=== PATIENT | female | born 1990 | race American Indian/Alaskan Native ===

== ENCOUNTER 2019-07-23 01:24 | Emergency (ER) | payer MEDICAID ==
[2019-07-23 01:55] LABS: Basophils # (Auto) 0.1 K/mm3 (0.0-0.1); Basophils % (Auto) 0.5 % (0.0-1.8); Eosinophils # (Auto) 0.1 K/mm3 (0.0-0.4); Eosinophils % (Auto) 0.8 % (0.0-4.3); Hematocrit 34.6 % (30.3-42.9); Hemoglobin 11.6 gm/dl (10.1-14.3); Lymphocytes # (Auto) 2.5 K/mm3 (1.2-5.4); Lymphocytes % (Auto) 23.5 % (13.4-35.0); Mean Corpuscular HGB Conc 34 % (30-34); Mean Corpuscular Volume 89 fl (79-97); Monocytes # (Auto) 0.8 K/mm3 (0.0-0.8); Monocytes % (Auto) 7.1 % (0.0-7.3); Platelet Count 316 K/mm3 (140-440); Red Cell Distribution Width 13.3 % (13.2-15.2)
[2019-07-23] MEDS ORDERED: ONDANSETRON 4 MG/2 ML INJ IV ONE (02:03)
[2019-07-23] MEDS ORDERED: ACETAMINOPHEN 500 MG TAB PO ONE (02:03)
[2019-07-23] MEDS ORDERED: FAMOTIDINE 20 MG/2 ML INJ IV ONE (02:03)
[2019-07-23 02:11] LABS: Alanine Aminotransferase 24 units/L (7-56); Albumin 3.7 g/dL (3.9-5); BUN/Creatinine Ratio 13; Blood Urea Nitrogen 9 mg/dL (7-17); Calcium 8.8 mg/dL (8.4-10.2); Hemolysis Index 3
[2019-07-23 03:06] LABS: Bacteria,Urine 2+ /HPF (Negative); Bilirubin,Urine NEG (Negative); Blood,Urine NEG (Negative); Color,Urine Yellow (Yellow); Hyaline Casts,Urine 1 /LPF; Mucus,Urine 2+ /HPF
--- NOTE | 2019-07-23 03:23 | Ultrasound Report ---
US OB <= 14 weeks fetus INDICATION / CLINICAL INFORMATION: Abdominal pain - 12 weeks gestation. COMPARISON: None available. FINDINGS: Uterus measures 14 cm. There is a 2.5 cm uterine fibroid. A single viable intrauterine gestation is demonstrated with heart rate 166 bpm. The crown-rump length is 3.8 cm corresponding to a 10 week 5 day gestation. The ovaries are normal. IMPRESSION: 1. Single viable 10 week 5 day intrauterine gestation. Signer Name: Maroln Caballero MD Signed: 07/23/2019 3:19 AM Workstation Name: [email or web address]
--- NOTE | 2019-07-23 03:39 | Emergency Department Report ---
ED Female HPI - General Chief complaint: Abdominal Pain Stated complaint: 11WEEKS PREG,ABDOMINAL PAIN Source: patient Mode of arrival: Ambulatory Limitations: No Limitations - History of Present Illness Initial comments: Patient is a A1 28-year-old -[place] female with no past medical history and who is approximately 10 weeks gestation and who presented to the ED with complaint of acute onset persistent suprapubic pain that radiates to the left lower quadrant area for the last 6 hours, worse in the last 2 hours with persistent nausea and vomiting for the last 2 weeks. Patient denies vaginal bleeding, vaginal discharge, dysuria, urinary frequency and urgency, fever, chills, cough, chest pain or shortness of breath, diarrhea, nausea and vomiting or low back pain and heavy lifting and fall. MD Complaint: pelvic pain -: Sudden, hour(s) (6) Location: suprapubic, LLQ Radiation: non-radiating Severity: severe Severity scale (0 -10): 7 Quality: cramping, sharp Consistency: constant Improves with: none Worsens with: none Are you Now?: Yes (10 weeka gestation) Associated Symptoms: denies other symptoms, abdominal pain. denies: vaginal discharge, vaginal bleeding, nausea/vomiting, fever/chills, headaches, loss of appetite, dysuria, hematuria, rash, seizure, shortness of breath, syncope, weakness - Related Data Sexually active: No : 3 Para: 1 A: 1 Previous Rx's Medication Instructions Recorded Last Taken Type Acetaminophen [Mapap] 500 mg PO Q6H PRN #30 tablet 07/23/19 Unknown Rx Promethazine [Phenergan] 25 mg PO Q6HR PRN #30 tab 07/23/19 Unknown Rx Allergies Allergy/AdvReac Type Severity Reaction Status Date / Time No Known Allergies Allergy Unverified 07/23/19 01:28 ED Review of Systems ROS: Stated complaint: 11WEEKS PREG,ABDOMINAL PAIN Other details as noted in HPI Constitutional: denies: chills, fever Eyes: denies: eye pain, eye discharge, vision change ENT: denies: ear pain, throat pain Respiratory: denies: cough, shortness of breath, wheezing Cardiovascular: denies: chest pain, palpitations Endocrine: no symptoms reported Gastrointestinal: abdominal pain (Left lower quadrant and suprapubic pain), nausea, vomiting. denies: diarrhea Genitourinary: denies: urgency, dysuria, frequency, hematuria, discharge, abnormal menses, dyspareunia Musculoskeletal: denies: back pain, joint swelling, arthralgia Skin: denies: rash, lesions Neurological: denies: headache, weakness, paresthesias Psychiatric: denies: anxiety, depression Hematological/Lymphatic: denies: easy bleeding, easy bruising ED Past Medical Hx - Past Medical History Previous Medical History?: No - Surgical History Past Surgical History?: Yes Additional Surgical History: - Social History Smoking Status: Never Smoker Substance Use Type: None - Medications Home Medications: Home Medications Medication Instructions Recorded Confirmed Last Taken Type Acetaminophen [Mapap] 500 mg PO Q6H PRN #30 tablet 07/23/19 Unknown Rx Promethazine [Phenergan] 25 mg PO Q6HR PRN #30 tab 07/23/19 Unknown Rx ED Physical Exam - General Limitations: No Limitations General appearance: alert, in no apparent distress - Head Head exam: Present: atraumatic, normocephalic, normal inspection - Eye Eye exam: Present: normal appearance, PERRL, EOMI. Absent: scleral icterus, conjunctival injection, nystagmus, periorbital swelling, periorbital tenderness Pupils: Present: normal accommodation - ENT ENT exam: Present: normal exam, normal orophraynx, mucous membranes moist, TM's normal bilaterally, normal external ear exam - Neck Neck exam: Present: normal inspection, full ROM - Respiratory Respiratory exam: Present: normal lung sounds bilaterally. Absent: respiratory distress, wheezes, rales, rhonchi, chest wall tenderness, accessory muscle use, prolonged expiratory - Cardiovascular Cardiovascular Exam: Present: regular rate, normal rhythm, normal heart sounds. Absent: systolic murmur, diastolic murmur, rubs, gallop - GI/Abdominal GI/Abdominal exam: Present: soft, tenderness (Palpable moderate left lower quadrant tenderness, no guarding or rebound), normal bowel sounds. Absent: guarding, rebound, hyperactive bowel sounds, hypoactive bowel sounds, mass - Bi-manual exam: Present: other (Pelvic exam deferred) - Extremities Exam Extremities exam: Present: normal inspection, full ROM, normal capillary refill - Back Exam Back exam: Present: normal inspection, full ROM. Absent: tenderness, CVA tenderness (R), CVA tenderness (L), paraspinal tenderness, vertebral tenderness - Neurological Exam Neurological exam: Present: alert, oriented X3, CN II-XII intact, normal gait, reflexes normal - Psychiatric Psychiatric exam: Present: normal affect, normal mood - Skin Skin exam: Present: warm, dry, intact, normal color. Absent: rash ED Course Vital Signs 07/23/19 07/23/19 01:25 02:14 Temperature 98.5 F Pulse Rate 73 Respiratory 18 18 Rate Blood Pressure 118/68 O2 Sat by Pulse 100 Oximetry ED Medical Decision Making - Lab Data Result diagrams: 07/23/19 01:37 07/23/19 01:37 - Radiology Data Radiology results: report reviewed, image reviewed Findings [facility] [address] [place] [address] Ultrasound Report Signed Patient: CITLALY ELIZABETH MR#: [id number] 2 : 1990 Acct:[id number] Age/Sex: 28 / F ADM Date: 07/23/19 Loc: ED Attending Dr: Ordering Physician: BEN CORTEZ Date of Service: 07/23/19 Procedure(s): US OB <= 14 weeks fetus Accession Number(s): [id number] cc: BEN CORTEZ US OB <= 14 weeks fetus INDICATION / CLINICAL INFORMATION: Abdominal pain - 12 weeks gestation. COMPARISON: None available. FINDINGS: Uterus measures 14 cm. There is a 2.5 cm uterine fibroid. A single viable intrauterine gestation is demonstrated with heart rate 166 bpm. The crown-rump length is 3.8 cm corresponding to a 10 week 5 day gestation. The ovaries are normal. IMPRESSION: 1. Single viable 10 week 5 day intrauterine gestation. Signer Name: Marlon Caballero MD Signed: 07/23/2019 3:19 AM Workstation Name: [id number] Transcribed By: FALLON Dictated By: Marlon Caballero MD Electronically Authenticated By: Marlon Caballero MD Signed Date/Time: 07/23/19318 DD/ 6 TD/TT: - Medical Decision Making This is a A1 28-year-old -[place] female who is approximately 10 weeks gestation and who presented to the ED with acute onset suprapubic pain that radiates to the left lower quadrant area with persistent nausea and vomiting. In the ED, patient is alert and oriented x3 and is not in any distress but appears to be in pain. Patient was treated in the ED for pain with Tylenol. Lab test results were reviewed and are all nonactionable, [place] [address] and mild acute hyponatremia of 134 mmol/L. The rest of the lab test results are nonactionable. The ultrasound shows A Single viable 10 week 5 day intrauterine gestation with a heart rate of 166 bpm, and no other abnormalities or hemorrhage. On reevaluation, patient's pain is well controlled with medications. Patient was discharged home on medications and advised to follow-up with her [facility] physician in 3 to 5 days for reevaluation or return to the ED immediately if symptoms get worse. Patient was also advised to maintain a complete pelvic rest with no heavy lifting or strenuous activity. - Differential Diagnosis Ectopic ; Ovarian cyst; PID; UTI; Colitis; Critical care attestation.: If time is entered above; I have spent that time in minutes in the direct care of this critically ill patient, excluding procedure time. ED Disposition Clinical Impression: Abdominal pain during in first trimester, Nausea and vomiting during prior to 22 weeks gestation Disposition: DC-01 TO HOME OR SELFCARE Is pt being admited?: No Does the pt Need Aspirin: No Condition: Stable Instructions: Abdominal Pain in (ED), Acute Nausea and Vomiting (ED) Additional Instructions: Lab test results are unremarkable and the ultrasound results are all normal with live intrauterine of approximately 10 weeks and 5 days, with a heart rate of 166 bpm. Therefore maintain a complete pelvic rest, take Tylenol as needed for pain and follow-up with your [facility] physician in 3 to 5 days for reevaluation. Return to the ED immediately if symptoms get worse. Prescriptions: Acetaminophen [Mapap] 500 mg PO Q6H PRN #30 tablet PRN Reason: Pain , Severe (7-10) Promethazine [Phenergan] 25 mg PO Q6HR PRN #30 tab PRN Reason: Nausea Referrals: JEFFRY LIPSCOMB MD [Staff Physician] - 3-5 Days Time of Disposition: 03:46 Print Language: CROATIAN
[2019-07-23 04:06] VITALS: BP 118/70
== END 2019-07-23 04:04 | disposition home or self-care (01) ==
LOC: ED 01:24
DX: O26.891 Other specified pregnancy related conditions, first trimester (principal); R10.30 Lower abdominal pain, unspecified; O21.8 Other vomiting complicating pregnancy; Z3A.10 10 weeks gestation of pregnancy
CPT/HCPCS: 36415; 76801; 80053; 81001; 84702; 85025; 96374; 96375; 99284; J2405